=== PATIENT | female | born 1990 | race Caucasian/White ===

== ENCOUNTER 2017-01-03 10:28 | Emergency (ER) | payer MEDICAID ==
[~2017-01-03] VITALS: Ht 160 cm; Wt 90.9 kg
[~2017-01-03 10:28] MED LIST: MOTRIN 600600 MG/TAB PO; PERC2.5TAB PO
[2017-01-03 10:32] VITALS: TEMP 98
[2017-01-03 11:51] LABS: BASO % 0.4 % (0.0-2.0); EOS # 0.1 (0.0-0.7); EOS % 1.2 % (0-4.0); GRAN # 6.4 (1.4-6.5); GRAN % 69.9 % (42.2-75.2); HEMATOCRIT 41.3 % (37.0-47.0); HEMOGLOBIN 13.9 g/dl (12.5-16.0); LYMPH % 21.9 % (20.0-51.0); MEAN CELL VOLUME 84 fl (80.0-100.0); MEAN CORPUSCULAR HEMOGLOBIN 28 pg (27.0-31.0); MEAN CORPUSCULAR HGB CONC 34 g/dl (33.0-37.0); MEAN PLATELET VOLUME 8.8 fl (7.4-10.4); MONO # 0.6 (0.1-0.6); MONO % 6.2 % (1.7-9.3); PLATELET COUNT 294 K/mm3 (130-400); REDCELL DISTRIBUTION WIDTH-CV 13.5 % (11.5-14.5); WHITE BLOOD COUNT 9.2 K/mm3 (4.8-10.8)
[2017-01-03 11:54] LABS: PH 7 (5-8); URINE APPEARANCE Clear; URINE BACTERIA Rare /hpf; URINE BILIRUBIN Negative (NEGATIVE); URINE BLOOD Negative (NEGATIVE); URINE COLOR Yellow; URINE GLUCOSE Negative (NEGATIVE); URINE KETONE Negative (NEGATIVE); URINE RBC 0-2 /hpf; URINE UROBILINOGEN Negative (NEGATIVE); URINE WBC 0-2 /hpf
[2017-01-03 12:00] LABS: ADJUSTED CALCIUM 9.1 mg/dL (8.4-10.2); ALBUMIN 4.3 gm/dL (3.5-5.0); BILIRUBIN,TOTAL 0.5 mg/dL (0.0-1.0); CALCIUM 9.3 mg/dL (8.4-10.2); CREATININE, serum 0.55 mg/dL (0.52-1.25); POTASSIUM 3.9 mmol/L (3.4-5.0); TOTAL PROTEIN 7.9 gm/dL (6.4-8.2)
[2017-01-03 14:53] VITALS: BP 103/59; PULSE 67
== END 2017-01-03 15:00 | disposition home or self-care (01) ==
LOC: COL.ER 10:28
PROVIDERS: Emergency Medicine
DX: O21.0 Mild hyperemesis gravidarum (principal); Z3A.01 Less than 8 weeks gestation of pregnancy
CPT/HCPCS: J2405; J2550; J7030

== ENCOUNTER 2017-03-11 10:17 | Emergency (ER) | payer MEDICAID ==
[~2017-03-11] VITALS: Ht 160 cm; Wt 89.2 kg
[2017-03-11 10:20] VITALS: TEMP 98.3
[2017-03-11] MEDS ORDERED: ZOFRAN ODT4 MG PO (10:24)
[2017-03-11] MEDS ORDERED: PROMETHAZINE12.5 M5 PO (10:24)
[2017-03-11] MEDS ORDERED: DICLEGIS PO (10:25)
[2017-03-11] MEDS ORDERED: PRENATAL FORMU1 EAC3 PO (10:25)
[2017-03-11 11:22] LABS: PH 7 (5-8); URINE APPEARANCE Cloudy; URINE BACTERIA Rare /hpf; URINE BILIRUBIN Negative (NEGATIVE); URINE BLOOD 2+ (NEGATIVE); URINE COLOR Yellow; URINE GLUCOSE Negative (NEGATIVE); URINE KETONE Trace (NEGATIVE); URINE UROBILINOGEN >=4.0 mg/dL (NEGATIVE)
[2017-03-11 11:24] LABS: URINE WBC >50 /hpf
[2017-03-11 11:28] LABS: BASO % 0.4 % (0.0-2.0); EOS # 0.1 (0.0-0.7); GRAN # 6.1 (1.4-6.5); GRAN % 72.5 % (42.2-75.2); HEMATOCRIT 38.1 % (37.0-47.0); LYMPH # 1.7 (1.2-3.4); LYMPH % 20.8 % (20.0-51.0); MEAN CELL VOLUME 85 fl (80.0-100.0); MEAN CORPUSCULAR HEMOGLOBIN 29 pg (27.0-31.0); MEAN CORPUSCULAR HGB CONC 34 g/dl (33.0-37.0); MEAN PLATELET VOLUME 8.7 fl (7.4-10.4); MONO # 0.4 (0.1-0.6); MONO % 4.8 % (1.7-9.3); PLATELET COUNT 239 K/mm3 (130-400); RED BLOOD COUNT 4.48 M/mm3 (4.10-5.30); REDCELL DISTRIBUTION WIDTH-CV 13.9 % (11.5-14.5); WHITE BLOOD COUNT 8.4 K/mm3 (4.8-10.8)
[2017-03-11 11:39] LABS: ADJUSTED CALCIUM 9.2 mg/dL (8.4-10.2); BILIRUBIN,TOTAL 0.6 mg/dL (0.0-1.0); CALCIUM 9.2 mg/dL (8.4-10.2); CREATININE, serum 0.48 mg/dL (0.52-1.25); POTASSIUM 3.7 mmol/L (3.4-5.0); TOTAL PROTEIN 7.5 gm/dL (6.4-8.2)
[2017-03-11] MEDS ORDERED: PHENERGAN25 MG RC (12:26)
[2017-03-11] MEDS ORDERED: MACROBID 1100 MG/CAP PO (12:26)
[2017-03-11 12:51] VITALS: BP 114/75; PULSE 74
== END 2017-03-11 12:55 | disposition home or self-care (01) ==
LOC: COL.ER 10:17
PROVIDERS: Emergency Medicine
DX: O23.42 Unspecified infection of urinary tract in pregnancy, second trimester (principal); O21.9 Vomiting of pregnancy, unspecified; Z3A.16 16 weeks gestation of pregnancy; Z98.890 Other specified postprocedural states
CPT/HCPCS: J2550; J7030

== ENCOUNTER 2017-04-13 13:05 | Emergency (ER) | payer MEDICAID ==
[~2017-04-13] VITALS: Ht 160 cm; Wt 87.7 kg
[~2017-04-13 13:05] MED LIST changes: +DICLEGIS PO; +MACROBID 1100 MG/CAP PO; +PHENERGAN25 MG RC; +PRENATAL FORMU1 EAC3 PO; +PROMETHAZINE12.5 M5 PO; +ZOFRAN ODT4 MG PO
[2017-04-13 13:07] VITALS: BP 101/70; TEMP 98
[2017-04-13 14:31] LABS: HEMATOCRIT 37.7 % (37.0-47.0); HEMOGLOBIN 12.8 g/dl (12.5-16.0); MEAN CELL VOLUME 88 fl (80.0-100.0); MEAN CORPUSCULAR HEMOGLOBIN 30 pg (27.0-31.0); MEAN CORPUSCULAR HGB CONC 34 g/dl (33.0-37.0); MEAN PLATELET VOLUME 8.9 fl (7.4-10.4); PLATELET COUNT 249 K/mm3 (130-400); RED BLOOD COUNT 4.31 M/mm3 (4.10-5.30); WHITE BLOOD COUNT 13.4 K/mm3 (4.8-10.8)
[2017-04-13 14:32] LABS: ADD PATHOLOGY DIFF REVIEW NO
[2017-04-13 14:49] LABS: ADJUSTED CALCIUM 9.1 mg/dL (8.4-10.2); ALBUMIN 3.9 gm/dL (3.5-5.0); BILIRUBIN,TOTAL 0.6 mg/dL (0.0-1.0); CREATININE, serum 0.47 mg/dL (0.52-1.25); POTASSIUM 3.7 mmol/L (3.4-5.0); TOTAL PROTEIN 7.7 gm/dL (6.4-8.2)
[2017-04-13 14:50] LABS: BAND 13 % (0-10); LYMPHOCYTE 7 % (20.0-51.0); NEUTROPHILS 80 % (42.0-75.2); PLATELET ESTIMATE NORMAL (NORMAL); TOTAL CELLS COUNTED 100
[2017-04-13] MEDS ORDERED: PHENERGAN 25 TA25 MG PO (15:02)
[2017-04-13] MEDS ORDERED: ZOFRAN ODT4 MG PO (15:02)
[2017-04-13 16:37] VITALS: PULSE 93
== END 2017-04-13 16:37 | disposition home or self-care (01) ==
LOC: COL.ER 13:05
PROVIDERS: Physician Assistant
DX: O21.2 Late vomiting of pregnancy (principal); Z3A.20 20 weeks gestation of pregnancy; Z90.49 Acquired absence of other specified parts of digestive tract; Z98.890 Other specified postprocedural states
CPT/HCPCS: J2405; J2550; J7030; J7120

== ENCOUNTER 2017-06-14 15:48 | Outpatient (CLI) | payer MEDICAID ==
[~2017-06-14] VITALS: Ht 160 cm; Wt 90.9 kg
[~2017-06-14 15:48] MED LIST changes: +PHENERGAN 25 TA25 MG PO
[2017-06-14 16:06] VITALS: BP 98/57; PULSE 109; TEMP 98
[2017-06-14 16:25] VITALS: BP 98/59; PULSE 109; TEMP 98
== END 2017-06-14 17:58 | disposition home or self-care (01) ==
LOC: LDRO 15:48
DX: O23.593 Infection of other part of genital tract in pregnancy, third trimester (principal); N75.0 Cyst of Bartholin's gland; Z3A.29 29 weeks gestation of pregnancy

== ENCOUNTER 2017-07-15 08:58 | Inpatient (IN) | payer MEDICAID ==
[~2017-07-15] VITALS: Ht 160.1 cm; Wt 90.9 kg
[2017-08-19] VITALS (17 sets, daily range): BP systolic 100–118; BP diastolic 48–73; PULSE 74–106; TEMP 97.6–98.1
[2017-08-19 06:55] LABS: BASO % 0.3 % (0.0-2.0); EOS # 0.1 (0.0-0.7); EOS % 0.9 % (0-4.0); GRAN # 7.2 (1.4-6.5); GRAN % 71.2 % (42.2-75.2); LYMPH # 2.2 (1.2-3.4); LYMPH % 21.4 % (20.0-51.0); MEAN CELL VOLUME 81 fl (80.0-100.0); MEAN CORPUSCULAR HGB CONC 33 g/dl (33.0-37.0); MEAN PLATELET VOLUME 8.9 fl (7.4-10.4); MONO # 0.6 (0.1-0.6); MONO % 5.7 % (1.7-9.3); PLATELET COUNT 248 K/mm3 (130-400); REDCELL DISTRIBUTION WIDTH-CV 14.5 % (11.5-14.5)
[2017-08-19 07:02] LABS: HEMATOCRIT 33.9 % (37.0-47.0); HEMOGLOBIN 11.2 g/dl (12.5-16.0); MEAN CORPUSCULAR HEMOGLOBIN 27 pg (27.0-31.0)
[2017-08-20 02:00] VITALS: BP 113/55; PULSE 86; TEMP 98.6
[2017-08-20 08:00] VITALS: BP 103/61; PULSE 91; TEMP 97.8
[2017-08-20 11:50] VITALS: BP 128/79; PULSE 88; TEMP 97.6
[2017-08-20 15:50] VITALS: BP 111/88; PULSE 86; TEMP 97.2
[2017-08-20 20:05] VITALS: BP 112/59; PULSE 77; TEMP 97.7
[2017-08-21] MEDS ORDERED: PERCOCET 325 MG1 TA2 PO (06:35)
[2017-08-21] MEDS ORDERED: IBU800 M1 PO (06:35)
[2017-08-21 08:00] VITALS: BP 106/59; PULSE 79; TEMP 97.4
== END 2017-08-21 11:40 | disposition home or self-care (01) | DRG 766 ==
LOC: COL.ER 08:58 → OB 08-19 05:23 → LDR 08-19 06:53 → OB 08-21 11:40
PROVIDERS: Student in an Organized Health Care Education/Training Program
PROC: 10D00Z1 Extraction of Products of Conception, Low, Open Approach (ICD-10-PCS; principal; 2017-08-19)
PROC: 0UB70ZZ Excision of Bilateral Fallopian Tubes, Open Approach (ICD-10-PCS; 2017-08-19)
DX: O34.211 Maternal care for low transverse scar from previous cesarean delivery (principal); N85.8 Other specified noninflammatory disorders of uterus; O99.824 Streptococcus B carrier state complicating childbirth; Z40.03 Encounter for prophylactic removal of fallopian tube(s); Z3A.39 39 weeks gestation of pregnancy; Z37.0 Single live birth
CPT/HCPCS: J0690; J1885; J2270; J2370; J2405; J2590; J7120

== ENCOUNTER 2017-07-15 09:01 | Outpatient (CLI) | payer MEDICAID ==
[~2017-07-15] VITALS: Ht 160 cm; Wt 90.0 kg
[2017-07-15 09:10] VITALS: BP 109/55; PULSE 106; TEMP 98.3
[2017-07-15 09:30] VITALS: BP 105/57; PULSE 100
[2017-07-15 10:00] VITALS: BP 107/57; PULSE 94
[2017-07-15 10:30] VITALS: BP 103/56; PULSE 96
[2017-07-15 11:09] VITALS: BP 106/58; PULSE 90
== END 2017-07-15 11:10 | disposition home or self-care (01) ==
LOC: LDRO 09:01
DX: O21.2 Late vomiting of pregnancy (principal); Z3A.34 34 weeks gestation of pregnancy
CPT/HCPCS: C9113; J2405; J7120